=== PATIENT | male | born 1950 | race Hispanic/Latino ===

== ENCOUNTER 2022-08-05 07:17 | Day surgery (SDC) | payer OTHER ==
[2022-07-30 12:33] LABS: BASOPHILS % (AUTO) 0.8 % (0.0-5.0); EOSINOPHILS % (AUTO) 4.8 % (0.0-8.0); HEMATOCRIT 40.9 % (42-54); LYMPHOCYTES % (AUTO) 29.8 % (21.0-51.0); MEAN CORPUSCULAR HEMOGLOBIN 26.7 pg (27.0-33.0); MEAN CORPUSCULAR VOLUME 83.5 fL (79-99); MONOCYTES % (AUTO) 5.2 % (3.0-13.0); NEUTROPHILS % (AUTO) 59.3 % (40.0-77.0); PLATELET COUNT (AUTO) 327 K/uL (130-400); RED CELL DISTRIBUTION WIDTH 13.9 % (11.0-15.5); WHITE BLOOD COUNT (AUTO) 7.8 K/uL (4.8-10.8)
[2022-07-30 12:40] LABS: APPEARANCE,URINE CLEAR (CLEAR); BILIRUBIN,URINE NEGATIVE (NEGATIVE); COLOR,URINE LIGHT-YELLOW (YELLOW); GLUCOSE, URINE (UA) NEGATIVE (NEGATIVE); KETONES,URINE NEGATIVE (NEGATIVE); LEUKOCYTE ESTERASE ,URINE NEGATIVE Leu/uL (NEGATIVE); NITRATE,URINE NEGATIVE (NEGATIVE); OCCULT BLOOD,URINE NEGATIVE (NEGATIVE); PROTEIN,URINE NEGATIVE (NEGATIVE); UROBILINOGEN,URINE 0.2 mg/dL (0.2-1.0)
[2022-07-30 12:56] LABS: CREATININE 0.7 mg/dL (0.5-1.5); POTASSIUM 3.8 mmol/L (3.5-5.1)
[2022-08-04 09:54] VITALS: BP 139/80
[~2022-08-05] VITALS: Ht 175.3 cm; Wt 97.5 kg
[2022-08-05] VITALS (19 sets, daily range): BP systolic 77–141; BP diastolic 44–91
[~2022-08-05 07:17] MED LIST: CALC500T13 PO; CEFTRIAXONE 1G VIAL IVPB SCH; GENTAMICIN 80 MG/NS 100 ML PB 100 ML IV SCH; LEVAQUIN PO
[2022-08-05] MEDS ORDERED: LACTATED RINGERS 1000ML 1,000 ML IV ONE (07:31)
[2022-08-05] MEDS ORDERED: PROPOFOL 10 MG/ML 20ML VIAL IV ONE (10:37)
[2022-08-05] MEDS ORDERED: ONDANSETRON 4MG INJ ONE (11:26)
[2022-08-05] MEDS ORDERED: MEPERIDINE-PF 25 MG/ML SYG ONE (11:26)
[2022-08-05] MEDS ORDERED: GLYCOPYRROLATE 1 MG/5 ML SYRINGE ONE (11:45)
== END 2022-08-05 13:20 | disposition home or self-care (01) ==
LOC: DAH 07:17
PROVIDERS: ATTEND Urology
DX: N40.0 Benign prostatic hyperplasia without lower urinary tract symptoms (principal); R97.20 Elevated prostate specific antigen [PSA]; Z20.822 Contact with and (suspected) exposure to COVID-19; K21.9 Gastro-esophageal reflux disease without esophagitis; Z80.42 Family history of malignant neoplasm of prostate
CPT/HCPCS: 80048; 85025; 87088; 87426; 81003; 36415; 71045; 93005; 55700; 88305; 76942; 76872; A6260; A4663; J7030; J7120; J3490; J0696; J2704; J2405; J2175; J1580; A4215 ×2; A4649; A4223; A4222; A4221; A4600

== ENCOUNTER 2023-08-11 06:13 | Day surgery (SDC) | payer OTHER ==
[2023-08-05 13:10] LABS: BASOPHILS # (AUTO) 0.07 K/uL (0.00-0.20); EOSINOPHILS # (AUTO) 0.53 K/uL (0.00-0.70); EOSINOPHILS % (AUTO) 7.9 % (0.0-8.0); HEMATOCRIT 42.5 % (42-54); IMMATURE GRANULOCYTE ABSOLUTE 0.02 K/uL (0-1); LYMPHOCYTES # (AUTO) 2.1 K/uL (1.0-4.8); LYMPHOCYTES % (AUTO) 31.8 % (21.0-51.0); MEAN CORPUSCULAR HEMOGLOBIN 26.5 pg (27.0-33.0); MEAN CORPUSCULAR HGB CONC 31.3 g/dL (32.0-36.0); MEAN CORPUSCULAR VOLUME 84.8 fL (79-99); MONOCYTES # (AUTO) 0.4 K/uL (0.1-1.0); MONOCYTES % (AUTO) 6.5 % (3.0-13.0); NEUTROPHILS # (AUTO) 3.5 K/uL (1.8-7.7); NEUTROPHILS % (AUTO) 52.5 % (40.0-77.0); PLATELET COUNT (AUTO) 315 K/uL (130-400); RED BLOOD CELL COUNT(AUTO) 5.01 MIL/uL (4.50-6.20); RED CELL DISTRIBUTION WIDTH 14.3 % (11.0-15.5); WHITE BLOOD COUNT (AUTO) 6.7 K/uL (4.8-10.8)
[2023-08-05 13:20] LABS: CREATININE 0.8 mg/dL (0.5-1.5); POTASSIUM 4.2 mmol/L (3.5-5.1)
[2023-08-05 13:24] LABS: APPEARANCE,URINE CLEAR (CLEAR); BILIRUBIN,URINE NEGATIVE (NEGATIVE); COLOR,URINE YELLOW (YELLOW); GLUCOSE, URINE (UA) NEGATIVE (NEGATIVE); KETONES,URINE NEGATIVE (NEGATIVE); LEUKOCYTE ESTERASE ,URINE NEGATIVE Leu/uL (NEGATIVE); NITRATE,URINE NEGATIVE (NEGATIVE); OCCULT BLOOD,URINE NEGATIVE (NEGATIVE); PH,URINE 6.5 (5.0-8.0); PROTEIN,URINE NEGATIVE (NEGATIVE); UROBILINOGEN,URINE 0.2 mg/dL (0.2-1.0)
[2023-08-05 13:44] VITALS: BP 151/78; PULSE 75; RESP 17
[2023-08-05 13:46] LABS: ADD UA MICROSCOPIC NO
[~2023-08-11] VITALS: Ht 175.3 cm; Wt 93.7 kg
[2023-08-11] VITALS (15 sets, daily range): BP systolic 100–134; BP diastolic 66–79; PULSE 58–69; RESP 13–19
[~2023-08-11 06:13] MED LIST changes: -CALC500T13 PO; -CEFTRIAXONE 1G VIAL IVPB SCH; -GENTAMICIN 80 MG/NS 100 ML PB 100 ML IV SCH; -LEVAQUIN PO; +TAMS-1 PO
[2023-08-11] MEDS ORDERED: GENTAMICIN 80 MG/NS 100 ML PB 100 ML IV ONE (07:18)
[2023-08-11] MEDS ORDERED: LACTATED RINGERS 1000ML 1,000 ML IV ONE (07:18)
[2023-08-11] MEDS: CEFTRIAXONE 1G VIAL ONE ×2 (07:38→09:00)
[2023-08-11] MEDS ORDERED: PROPOFOL 1000 MG/100 ML 100 ML IV ONE (08:50)
[2023-08-11] MEDS ORDERED: MIDAZOLAM HCL 1 MG/ML 2ML VIAL ONE (08:56)
[2023-08-11] MEDS ORDERED: FENTANYL CITRATE PF 50 MCG/1 ML 2ML VIAL ONE (08:56)
[2023-08-11] MEDS ORDERED: KETOROLAC 30MG VIAL (30MG/ML) ONE (09:39)
== END 2023-08-11 10:55 | disposition home or self-care (01) ==
LOC: DAH 06:13
PROVIDERS: ATTEND Urology
DX: N40.0 Benign prostatic hyperplasia without lower urinary tract symptoms (principal); I49.3 Ventricular premature depolarization; E66.9 Obesity, unspecified; Z79.899 Other long term (current) drug therapy; Z79.01 Long term (current) use of anticoagulants; Z85.46 Personal history of malignant neoplasm of prostate
CPT/HCPCS: 80048; 85025; 87088; 81003; 36415; 71045; 93005; 55700; 88305; 76872; 76942; A4663; J7120; J3010; J0696; J2250; J2704; J1885; J1580; A4215 ×2; A4649; A4223; A4222; A4221; A4600